=== PATIENT | female | born 1955 | race Caucasian/White ===

== ENCOUNTER 2024-02-17 05:49 | Day surgery (SDC) | payer OTHER ==
--- NOTE | 2024-02-12 11:42 | RAD REPORT ---
EXAMINATION: TWO VIEW CHEST XR CLINICAL INDICATION: Female, 68 years old. [facility] MA[facility] PRE OP FOR DAY SURGERY TECHNIQUE: 2 view radiographs of the chest were performed. COMPARISON: No prior exam. FINDINGS: The lungs are well inflated and clear. No pneumothorax or sizable effusion. The heart is normal in si ze. Mediastinal contours are unremarkable. IMPRESSION: No acute or significant abnormalities.
[2024-02-12 11:59] LABS: Absolute Basophils 0.1 K/uL (0-0.5); Absolute Eosinophils 0.2 K/uL (0-0.5); Absolute Monocytes 0.4 K/uL (0.1-1.3); Absolute Neutrophil 3.2 K/uL (1.8-8.0); Basophils % 0.9 % (0-1.3); Eosinophils % 3.9 % (0-4.4); Hematocrit 36.1 % (36.0-45.0); Hemoglobin 11.9 g/dL (12.0-15.0); MCHC 33.1 g/dL (32.0-36.0); MCV 87.7 fL (80-100); MPV 9.2 fL (7.6-11.3); Monocytes % 7.5 % (3.3-12.3); Neutrophils % 53.7 % (41.7-73.7); Platelets 365 thou/uL (152-406); RBC Red Blood Cell Count 4.11 M/uL (3.86-4.86); Red Cell Distribution Width 13.1 % (12.1-15.2)
[2024-02-12 12:07] LABS: Anion Gap 10.2 mEq/L (5.0-15.0); Potassium 4.2 mEq/L (3.5-5.1)
--- NOTE | 2024-02-12 14:09 | EKG ---
Test Date: 2024-02-12 Test Time: 10:41:35 Web Software Engineer: IFRAH MEASUREMENT RESULTS: Intervals: Rate: 63 WY: 146 QRSD: 80 QT: 388 QTc: 397 [place]: P: 49 WY: 146 QRS: 67 T: 59 INTERPRETIVE STATEMENTS: Normal sinus rhythm Normal ECG No previous ECG available for comparison Electronically Signed On 02-12-24 14:09:03 CDT by Isiah Cote
[2024-02-17] MEDS ORDERED: CEFOXITIN SODIUM 1 GM/VIAL ONE (06:08)
[2024-02-17] MEDS: NA CHLORIDE 0.9% 1,000 ML ONE (06:23)
[2024-02-17] MEDS ORDERED: BUPIVACAINE 0.5% PF 10 ML VIAL ONE (07:05)
[2024-02-17] MEDS ORDERED: MIDAZOLAM HCL 2 MG/2 ML INJ ONE (07:16)
[2024-02-17] MEDS ORDERED: propofoL 200 MG/20 ML VIAL IV ONE (07:16)
[2024-02-17] MEDS ORDERED: ONDANSETRON 4 MG/2 ML VIAL ONE ×2 (07:16→07:28)
[2024-02-17] MEDS ORDERED: LIDOCAINE 2% MPF 5 ML VIAL ONE (07:16)
[2024-02-17] MEDS ORDERED: FENTANYL CITR 100 MCG/2 ML ONE (07:16)
[2024-02-17] MEDS ORDERED: dexAMETHasone 10 MG/ML VIAL ONE (07:28)
[2024-02-17] MEDS ORDERED: EPHEDRINE SULF 50 MG/ML VIAL ONE (07:30)
[2024-02-17] MEDS ORDERED: GLYCOPYRROLATE 0.2 MG/ML SYR ONE (07:33)
[2024-02-17] MEDS: CEFOXITIN SODIUM 1 GM/VIAL IM ONE (07:37)
[2024-02-17] MEDS: BUPIVACAINE 0.5% PF 10 ML VIAL SQ ONE (07:50)
--- NOTE | 2024-02-17 07:59 | P.OP ---
Date of Service: 02/17/24 Preop diagnosis: Rectal pain, anterior midline fissure Postop diagnosis: Same Procedure performed: Exam under anesthesia, proctoscopy and excisional biopsy of anterior midline fissure Surgeon: Darrick Perea MD Radio Program Director: None Estimated blood loss: Minimal Specimen: Anterior midline fissure Findings: As above Anesthesia: General Complications: None Drains: None Fluids and blood products: Nonapplicable Disposition: Recovery room Operative note: Patient brought to the OR and placed in supine position. General anesthesia began. Patient placed in the lithotomy position. Patient prepped and draped in usual sterile fashion. Exam under anesthesia and proctoscopy revealed anterior midline healing wound. This is consistent with a anterior midline fissure and it had a sentinel pile associated with it. Harmonic scalpel used to excise the fissure and the sentinel pile. Specimen sent to pathology. There was no evidence of bleeding. Marcaine 0.55% infiltrated for postop pain control. No other evidence of disease identified. Sterile dressing applied and patient awakened. Patient taken to recovery room in good general condition. CC: Dr. Herr's office
[2024-02-17] MEDS ORDERED: HYDROCODONE/APAP 7.5/325 MG TAB PO PRN (08:01)
[2024-02-17 08:28] VITALS: O2SAT 100
[2024-02-17 09:20] VITALS: BP 141/61; TEMP 97
== END 2024-02-17 09:33 | disposition home or self-care (01) ==
LOC: OR 05:49
PROVIDERS: ATTEND Surgery
PROC: 0DBQ8ZX Excision of Anus, Via Natural or Artificial Opening Endoscopic, Diagnostic (ICD-10-PCS; principal; 2024-02-17 07:21)
DX: K60.0 Acute anal fissure (principal); K64.4 Residual hemorrhoidal skin tags; K62.89 Other specified diseases of anus and rectum; Z87.19 Personal history of other diseases of the digestive system
CPT/HCPCS: 36415; 71046; 80048; 82947; 85025; 88304; 93005; J0694; J1100; J2003; J2250; J2405; J2704; J3010; J7030